=== PATIENT | female | born 1935 | race Asian ===

== ENCOUNTER 2023-08-02 06:17 | Day surgery (SDC) | payer MEDICARE, OTHER, SELFPAY ==
[2023-08-02 07:01] VITALS: BMI 23.7
[2023-08-02 07:14] LABS: Glucose - Point of Care 171 mg/dl (70-99)
[2023-08-02 07:15] VITALS: BP 171/69
[2023-08-02 07:23] VITALS: BMI 23.7
[2023-08-02 09:05] VITALS: BP 160/73
[2023-08-02 09:15] VITALS: BP 129/86
[2023-08-02 09:20] VITALS: BP 160/73
[2023-08-02 09:30] VITALS: BP 108/63
[2023-08-02 09:57] LABS: Glucose - Point of Care 140 mg/dl (70-99)
== END 2023-08-02 10:45 | disposition home or self-care (01) ==
LOC: GI 06:17
PROVIDERS: ATTENDING PHYSICIAN Internal Medicine Gastroenterology
DX: K64.0 First degree hemorrhoids (principal); D37.5 Neoplasm of uncertain behavior of rectum; D3A.026 Benign carcinoid tumor of the rectum
CPT/HCPCS: 45349; 88305; 82962; 88341; 88342